=== PATIENT | male | born 1985 | race Hispanic/Latino ===

== ENCOUNTER 2022-10-17 15:51 | Emergency (ER) | payer MEDICAID ==
[~2022-10-17] VITALS: Ht 172.7 cm; Wt 89.0 kg
[2022-10-17 18:23] VITALS: BP 103/63
[2022-10-17] MEDS ORDERED: HYDROCO/APAP1 TA9 PO (18:36)
== END 2022-10-17 18:44 | disposition home or self-care (01) ==
LOC: ED 15:51
DX: S82.832A Other fracture of upper and lower end of left fibula, initial encounter for closed fracture (principal); S82.52XA Displaced fracture of medial malleolus of left tibia, initial encounter for closed fracture; V80.010A Animal-rider injured by fall from or being thrown from horse in noncollision accident, initial encounter; Y93.52 Activity, horseback riding; Y92.73 Farm field as the place of occurrence of the external cause